=== PATIENT | male | born 1990 | race African-American/Black ===

== ENCOUNTER 2018-06-02 03:06 | Emergency (ER) | payer SELFPAY ==
[2018-06-02] MEDS ORDERED: LIDOCAINE 1% INJ-PF (10 MG/ML) 30 ML SDV INJ ONE (04:42)
[2018-06-02] MEDS ORDERED: ONDANSETRON 4 MG TAB.RAPDIS PO ONE (04:47)
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
[2018-06-02] MEDS ORDERED: ACETAMINOPHEN 325 MG TABLET PO ONE (05:22)
[2018-06-02] MEDS ORDERED: HYDROCODONE/ACETAMINOPHEN 5-325 MG (6 TAB/ER DISP) PO PRN (06:04)
[2018-06-02 06:26] VITALS: BP 123/76
== END 2018-06-02 06:24 | disposition home or self-care (01) ==
LOC: ER 03:06
DX: S01.511A Laceration without foreign body of lip, initial encounter (principal); S61.216A Laceration without foreign body of right little finger without damage to nail, initial encounter; S61.214A Laceration without foreign body of right ring finger without damage to nail, initial encounter; S19.9XXA Unspecified injury of neck, initial encounter; M79.642 Pain in left hand; S49.90XA Unspecified injury of shoulder and upper arm, unspecified arm, initial encounter; Y04.2XXA Assault by strike against or bumped into by another person, initial encounter
CPT/HCPCS: 99284; 70450; 72125; 12011; L0120; J3490